=== PATIENT | male | born 1985 | race Two or more races ===

== ENCOUNTER 2019-05-28 19:24 | Emergency (ER) | payer BC ==
--- NOTE | 2019-05-28 20:11 | UC ---
Eye Complaint HPI - HPI Summary HPI Summary: Pt presents with c/o onset of "blurry vision" that began many months ago and has worsened today. Pt reports that he hit his forehead 12 days ago while swimming in a pool. Pt denies LOC, OWUSU, or sudden onset of vision changes. Pt states that he had "eye surgery" 8 years ago and does not have routine eye exams. 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 He states that he regularly lives in [place] and is visiting here for the last 5 days. Pt states he woke this morning and his vision has been the "blurriest" it has been in a long time. Pt is concerned that he may have an eye infection. - History of Current Complaint Chief Complaint: UCEye Stated Complaint: BLURRY VISION Time Seen by Provider: 05/28/19 19:43 Hx Obtained From: Patient Onset/Duration: Sudden Onset, Lasting Hours, Still Present Timing: Intermittent Episode Lasting Severity Initially: Mild Severity Currently: Mild Pain Intensity: 2 Aggravating Factor(s): Nothing Alleviating Factor(s): Nothing Associated Signs And Symptoms: Positive: Drainage (Clear) - Risk Factors Penetrating Injury Risk Factor: Negative Globe Rupture Risk Factors: Negative Acute Glaucoma Risk Factors: Negative Optic Artery Occlusion Risk Factors: Negative - Allergies/Home Medications Allergies/Adverse Reactions: Allergies Allergy/AdvReac Type Severity Reaction Status Date / Time No Known Allergies Allergy Verified 05/28/19 19:40 Home Medications: Home Medications NK [No Home Medications Reported] 05/28/19 [History Confirmed 05/28/19] PMH/Surg Hx/FS Hx/Imm Hx Previously Healthy: Yes - Surgical History Surgical History: Yes Surgery Procedure, Year, and Place: b/l eye sx 6 yrs ago. - Family History Known Family History: Positive: Cardiac Disease - Social History Occupation: Employed Full-time Lives: With Family Alcohol Use: Weekly Substance Use Type: Marijuana Smoking Status (MU): Light Every Day Tobacco Smoker Type: Cigarettes Amount Used/How Often: 2 cigs per day Length of Time of Smoking/Using Tobacco: 10 yrs Have You Smoked in the Last Year: Yes - Immunization History Vaccination Up to Date: Yes Review of Systems All Other Systems Reviewed And Are Negative: Yes Constitutional: Positive: Negative Skin: Positive: Negative Eyes: Positive: Blurred Vision ENT: Positive: Negative Respiratory: Positive: Negative Cardiovascular: Positive: Negative Gastrointestinal: Positive: Negative Genitourinary: Positive: Negative Motor: Positive: Negative Neurovascular: Positive: Negative Musculoskeletal: Positive: Negative Neurological/Mental Status: Positive: Negative Psychological: Positive: Negative Is Patient Immunocompromised?: No Physical Exam Triage Information Reviewed: Yes Appearance: Well-Appearing Vital Signs: Initial Vital Signs Temp 97 F 05/28/19 19:41 Pulse 68 05/28/19 19:41 Resp 16 05/28/19 19:41 BP 144/86 05/28/19 19:41 Pulse Ox 98 05/28/19 19:41 Vital Signs Reviewed: Yes Eye Exam: Normal, Other - EOMI, PERRLA Eyes: Positive: Conjunctiva Clear ENT Exam: Normal ENT: Positive: Hearing grossly normal Dental Exam: Normal Neck exam: Normal Respiratory Exam: Normal Cardiovascular Exam: Normal Musculoskeletal Exam: Normal Neurological Exam: Normal Psychological Exam: Normal Skin Exam: Normal Eye Complaint Course/Dx - Course Course Of Treatment: Pt was advised to f/u with eye care provider. Pt verbalized understanding and agreed to plan of care. - Differential Dx/Diagnosis Differential Diagnosis/HQI/PQRI: Conjunctivitis, Detached Retina, Uveitis Provider Diagnosis: Vision blurred Discharge ED - Sign-Out/Discharge Documenting (check all that apply): Patient Departure All imaging exams completed and their final reports reviewed: No Studies - Discharge Plan Condition: Stable Disposition: HOME Patient Education Materials: Blurred Vision (ED) Referrals: No Primary Care Phys,NOPCP [Primary Care Provider] - Chuck Centeno MD [Medical Doctor] - If Needed Additional Instructions: Please see an eye care provider as soon as possible. If your symptoms worsen, please seek care at the closest emergency room as soon as possible. - Billing Disposition and Condition Condition: STABLE Disposition: Home
== END 2019-05-28 20:30 | disposition home or self-care (01) ==
LOC: UCCORT 19:24
DX: H53.8 Other visual disturbances (principal); F17.210 Nicotine dependence, cigarettes, uncomplicated
CPT/HCPCS: 99202; G0463